=== PATIENT | male | born 2000 | race Caucasian/White ===

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

== ENCOUNTER 2024-09-07 18:22 | Emergency (ER) | payer OTHER ==
[~2024-09-07] VITALS: Ht 177.8 cm; Wt 53.1 kg
[~2024-09-07 18:22] MED LIST: NORCO 5-325 TA1 EACH PO; PAXIL20 MG PO; VISTARIL25 MG PO
[2024-09-07] MEDS ORDERED: AMOX TR-K CLV1 EAC1 PO (18:41)
[2024-09-07] MEDS ORDERED: AMOXICILLIN/CLAVULANATE K 875 MG TAB PO ONE (18:45)
[2024-09-07 19:17] VITALS: BP 129/88
== END 2024-09-07 19:18 | disposition home or self-care (01) ==
LOC: ED 18:22
DX: S61.250A Open bite of right index finger without damage to nail, initial encounter (principal); W54.0XXA Bitten by dog, initial encounter
CPT/HCPCS: 12001; 99283